=== PATIENT | female | born 2000 | race Caucasian/White ===

== ENCOUNTER 2020-03-18 22:33 | Observation (INO) | payer OTHER, MEDICAID, SELFPAY ==
[2020-03-18 22:37] VITALS: BP 138/89; PULSE 109; RESP 18; TEMP 37.3; O2SAT 100; BMI 25.1
[2020-03-18 23:05] LABS: Add Manual Diff / Slide Review NO; Basophils Absolute Auto 100 /uL (0-100); Basophils Percent Auto 0.4 % (0-2); Eosinophils Absolute Auto 0 /uL (0-450); Hematocrit 45.2 % (36-46); Hemoglobin 15.2 g/dL (12.0-16.0); Lymphocytes Absolute Auto 1400 /uL (1100-4500); Lymphocytes Percent Auto 10.1 % (25-40); Mean Corpuscular HGB Conc 33.6 % (30-36); Mean Corpuscular Hemoglobin 28.5 PG (26-34); Mean Corpuscular Volume 84.8 fL (80-100); Monocytes Absolute Auto 800 /uL (0-900); Monocytes Percent Auto 5.7 % (3-14); Neutrophils Absolute Auto 12000 /uL (1500-7000); Neutrophils Percent Auto 83.8 % (50-75); Platelet Count 196 X10^3/uL (150-400); Red Blood Cell Count 5.33 X10^6/uL (4.0-5.2); Red Cell Distribution Width 12.4 % (11.6-14.8); White Blood Cell Count 14.3 X10^3/uL (4.5-11.0)
--- NOTE | 2020-03-18 23:12 | ED_ITS ---
HPI - Abdominal Pain General Chief Complaint: Abdominal Pain Stated Complaint: FEVER RIGHT SIDE PAIN Time Seen by Provider: 03/18/20 22:35 Source: patient and family Mode of arrival: Ambulatory Limitations: no limitations History of Present Illness HPI narrative: 19F nonsmoker without significant medical history presents with her mother and the request of her primary care provider for evaluation of possible appendicitis. She went to bed in her normal state of health and over the course of the day she has developed fever, decreased appetite, nausea, vomiting and shaking chills. She has had generalized abdominal pain which seems to now be more significant in the right lower quadrant. She denies dysuria, christi quency or urgency. She denies any vaginal bleeding or discharge. She states her pain seems to be worse with movement and improves with rest. She denies any runny nose, sneezing, sore throat, cough or shortness of breath. She denies any exposure to persons known to be positive or under suspicion for COVID-19. MD complaint: abdominal pain Onset (ago): hour(s) Pain Consistency: constant Location: RLQ Severity: moderate Quality: aching Relieving factors: rest Exacerbating factors: movement Associated symptoms: nausea, vomiting, fever and chills Related Data Patient : No Allergies Allergy/AdvReac Type Severity Reaction Status Date / Time No Known Drug Allergies Allergy Verified 03/18/20 22:59 Review of Systems Constitutional Constitutional: Reports chills, Denies fatigue, Reports fever(s), Denies f requent falls, Denies lethargy and Denies weakness Eyes Eyes: Denies change in vision, Denies eye discharge, Denies irritation and Denies loss of vision ENT Ears, Nose, Mouth, and Throat: Denies change in voice, Denies dizziness, Denies neck pain, Denies sore throat and Denies throat swelling Cardiovascular Cardiovascular: Denies chest pain, Denies irregular heart rhythm, Denies lightheadedness, Denies palpitations, Denies dyspnea, Denies dyspnea on exertion and Denies orthopnea Respiratory Respiratory: Denies cough, Denies dyspnea, Denies dyspnea on exertion and Denies wheezing Gastrointestinal Gastrointestinal: Reports abdominal pain, Denies change in bowel habits, Denies diarrhea, Reports nausea and Reports vomiting Musculoskeletal Musculoskeletal: Denies neck pain and Denies numbness Integumentary/Breasts Skin/Breast: Denies pruritus, Denies erythema, Denies rash and Denies wounds Neurologic Neurologic: Denies behavioral changes, Denies confusion, Denies dizziness, Denies frequent falls, Denies loss of vision, Denies numbness and Denies weakness Psychiatric Psychiatric: Denies anxiety, Denies behavioral changes, Denies confusion, Denies depression, Denies homicidal ideation and Denies suicidal ideation Endocrine Endocrine: Denies fatigue, Denies flushing and Denies palpitations Hematologic/Lymphatic Hematologic/Lymphatic: Denies easy bruising Allergic/Immunologic Allergic/Immunologic: Denies urticaria, Denies throat swelling and Denies wheezing Patient History Medical History History of pernicious anemia Surgical History Hx of tonsillectomy Family History Mother Pernicious anemia Sister Pernicious anemia Father Depression Schizoaffective disorder Bipolar 1 disorder Social History household members: family Smoking Status: Never smoker Smoking Status: Never smoker alcohol intake frequency: other Substance Use Type: does not use Exam Narrative Exam Narrative: GENERAL: [19] year old patient appears stated age. Well-nourish ed, well-developed patient, in mild distress. Appears unwell HEAD: Atraumatic. Normocephalic. EYES: Pupils equal round and reactive. Extraocular motions intact. No scleral icterus. No injection or drainage. ENT: Nose without bleeding, purulent drainage. Throat without erythema, tonsillar hypertrophy or exudate. Airway patent. NECK: Trachea midline. Non tender CARDIOVASCULAR: Regular rate and rhythm without murmurs, gallops, or rubs. RESPIRATORY: Clear to auscultation. Breath sounds equal bilaterally. No wheezes, rales, or rhonchi. GASTROINTESTINAL: Abdomen soft, non-tender, nondistended. No rebound. No RLQ tenderness. No heel tap, no Rovsing's. No obturator or psoas sign EXTREMITIES: No edema or joint tenderness. BACK: Nontender without deformity or crepitance. No flank tenderness. NEURO: AOx3. SKIN: No rash or erythema of visible areas Initial Vital Signs Initial Vital Signs: Vital Signs Temperature 99.2 F 12/08/20 22:37 Pulse Rate 109 H 03/18/20 22:37 Respiratory Rate 18 03/18/20 22:37 Blood Pressure 138/89 03/18/20 22:37 Pulse Oximetry 100 03/18/20 22:37 Course Orders Ordered: ED Orders 03/18/20 22:40 COVID19 Stat 03/18/20 22:50 Complete Blood Count AUTO DIFF Stat Comprehensive Metabolic Panel Stat 03/18/20 23:15 UA Complete [Urinalysis and Microscopic] Stat 03/18/20 23:42 CT abdomen pelvis w con Stat 03/19/20 01:37 Lactate (Lactic Acid) Stat Procalcitonin Stat 03/19/20 01:50 Blood Culture Stat Acetaminophen (Acetaminophen 325 Mg Tablet) 650 mg PO Q6HR PRN PRN Reason: Fever/Mild Pain (1-3) Sodium Chloride (Normal Saline 0.45%) 1,000 mls @ 100 mls/hr IV CONT MARIPOSA Last Admin: 03/19/20 03:11 Dose: 100 mls/hr Documented by: TATY Levofloxacin (Levaquin) 750 mg in 150 mls @ 100 mls/hr IV Q24H MARIPOSA Ketorolac Tromethamine (Ketorolac 30 Mg/Ml Vial) 15 mg IV Q6HR PRN PRN Reason: Pain, Severe (7-10) Stop: 03/24/20 02:22 Discontinued Medications Sodium Chloride (Normal Saline 0.9%) 1,000 mls @ 1,000 mls/hr IV BOLUS ONE Stop: 03/18/20 23:38 Last Infusion: 03/19/20 02:20 Dose: 0 mls/hr Documented by: Admin: 03/18/20 23:32 Dose: 1,000 mls/hr Documented by: SUN Levofloxacin (Levaquin) 500 mg in 100 mls @ 100 mls/hr IV NOW ONE Stop: 03/19/20 02:23 Last Infusion: 03/19/20 02:21 Dose: 0 mls/hr Documented by: Admin: 03/19/20 01:51 Dose: 100 mls/hr Documented by: SUN Ketorolac Tromethamine (Ketorolac 60 Mg/2 Ml Vial) 15 mg IV NOW ONE Stop: 03/19/20 00:34 Last Admin: 03/19/20 00:37 Dose: 15 mg Documented by: AUPDIKE Consultations Consultation #1: discussion with Urology (Ivy) to discusss ill appearing patient with imaging, labs suggesting pyelonephritis despite 3 negative urine tests. Given focal appearance of pyelonephritis there is concern for possible hematologic spread. Recommends IV ABX, fluids Vital Signs Vital signs: Vital Signs - 8 hr 03/18/20 22:37 03/18/20 23:37 03/19/20 00:00 Temperature 99.2 F Pulse Rate 109 H 115 H 105 H Respiratory Rate 18 Blood Pressure 138/89 119/79 Pulse Oximetry 100 100 100 03/19/20 00:30 03/19/20 00:39 03/19/20 01:00 Temperature 101.4 F H 99.6 F Pulse Rate 112 H 108 H 109 H Respiratory Rate Blood Pressure 127/85 125/78 Pulse Oximetry 100 100 99 03/19/20 01:13 03/19/20 01:30 Temperature 99.6 F Pulse Rate 115 H Respiratory Rate Blood Pressure 130/79 Pulse Oximetry 99 MDM - Abdominal Pain Lab Data Result diagrams: 03/18/20 22:50 03/18/20 22:50 Labs: Lab Results 03/18/20 03/18/20 03/18/20 Range/Units 22:40 22:50 22:50 WBC 14.3 H (4.5-11.0) X10^3/uL RBC 5.33 H (4.0-5.2) X10^6/uL Hgb 15.2 (12.0-16.0) g/dL Hct 45.2 (36-46) % MCV 84.8 (80-100) fL MCH 28.5 (26-34) PG MCHC 33.6 (30-36) % RDW 12.4 (11.6-14.8) % Plt Count 196 (150-400) X10^3/uL Neut % (Auto) 83.8 H (50-75) % Lymph % (Auto) 10.1 L (25-40) % Phillips % (Auto) 5.7 (3-14) % Eos % (Auto) 0.0 L (2-4) % Baso % (Auto) 0.4 (0-2) % Neut # (Auto) 98131 H (6930-8012) /uL Lymph # (Auto) 1400 (8738-8097) /uL Phillips # (Auto) 800 (0-900) /uL Eos # (Auto) 0 (0-450) /uL Baso # (Auto) 100 (0-100) /uL Sodium 138 (137-145) mmol/L Potassium 4.0 (3.4-5.1) mmol/L Chloride 103 (98-107) mmol/L Carbon Dioxide 27 (22-32) mmol/L BUN 8 (7-17) mg/dL Creatinine 0.77 (0.52-1.04) mg/dL Estimated GFR > 60.0 (>60) mL/min BUN/Creatinine Ratio 10.4 (6-22) Glucose 107 H (70-100) mg/dL Lactate (0.7-2.1) mmol/L Calcium 9.9 (8.4-10.2) mg/dL Total Bilirubin 1.0 (0.2-1.3) mg/dL AST 22 (14-36) IU/L ALT 15 (<35) IU/L Alkaline Phosphatase 68 (38-126) U/L Total Protein 8.8 H (6.3-8.2) g/dL Albumin 4.8 (3.5-5.0) g/dL Globulin 4.0 (1.7-4.1) g/dL Albumin/Globulin Ratio 1.2 (1.0-2.8) Procalcitonin (<0.5) ng/mL Urine Color Urine Appearance Urine pH (4.5-8.0) Ur Specific [place] (1.000-1.035) Urine Protein (Negative) Urine Glucose (UA) (Negative) g/dL Urine Ketones (NEGATIVE) Urine Occult Blood (Negative) Urine Nitrate (Negative) Urine Bilirubin (NEGATIVE) Urine Urobilinogen (0.2) E.U./dL Ur Leukocyte Esterase (NEGATIVE) Urine RBC (0-5/HPF) Urine WBC (0-5/HPF) Ur Squamous Epith Cells (0-5/HPF) Urine Bacteria (None) Ur Culture Indicated? Urine Test (Negative) COVID-19 PCR Negative (Negative) 03/18/20 03/18/20 03/18/20 Range/Units 22:50 22:50 23:15 WBC (4.5-11.0) X10^3/uL RBC (4.0-5.2) X10^6/uL Hgb (12.0-16.0) g/dL Hct (36-46) % MCV (80-100) fL MCH (26-34) PG MCHC (30-36) % RDW (11.6-14.8) % Plt Count (150-400) X10^3/uL Neut % (Auto) (50-75) % Lymph % (Auto) (25-40) % Phillips % (Auto) (3-14) % Eos % (Auto) (2-4) % Baso % (Auto) (0-2) % Neut # (Auto) (5673-6921) /uL Lymph # (Auto) (8047-3602) /uL Phillips # (Auto) (0-900) /uL Eos # (Auto) (0-450) /uL Baso # (Auto) (0-100) /uL Sodium (137-145) mmol/L Potassium (3.4-5.1) mmol/L Chloride (98-107) mmol/L Carbon Dioxide (22-32) mmol/L BUN (7-17) mg/dL Creatinine (0.52-1.04) mg/dL Estimated GFR (>60) mL/min BUN/Creatinine Ratio (6-22) Glucose (70-100) mg/dL Lactate 1.0 (0.7-2.1) mmol/L Calcium (8.4-10.2) mg/dL Total Bilirubin (0.2-1.3) mg/dL AST (14-36) IU/L ALT (<35) IU/L Alkaline Phosphatase (38-126) U/L Total Protein (6.3-8.2) g/dL Albumin (3.5-5.0) g/dL Globulin (1.7-4.1) g/dL Albumin/Globulin Ratio (1.0-2.8) Procalcitonin 0.08 (<0.5) ng/mL Urine Color Yellow Urine Appearance Clear Urine pH 7.5 (4.5-8.0) Ur Specific [place] 1.010 (1.000-1.035) Urine Protein Negative (Negative) Urine Glucose (UA) Negative (Negative) g/dL Urine Ketones Trace H (NEGATIVE) Urine Occult Blood 2+ H (Negative) Urine Nitrate Negative (Negative) Urine Bilirubin Negative (NEGATIVE) Urine Urobilinogen 0.2 (0.2) E.U./dL Ur Leukocyte Esterase Negative (NEGATIVE) Urine RBC 1-5/hpf (0-5/HPF) Urine WBC 0-1/hpf (0-5/HPF) Ur Squamous Epith Cells 1-5 /hpf (0-5/HPF) Urine Bacteria None seen (None) Ur Culture Indicated? Cult not indicated Urine Test (Negative) COVID-19 PCR (Negative) 03/18/20 Range/Units 23:15 WBC (4.5-11.0) X10^3/uL RBC (4.0-5.2) X10^6/uL Hgb (12.0-16.0) g/dL Hct (36-46) % MCV (80-100) fL MCH (26-34) PG MCHC (30-36) % RDW (11.6-14.8) % Plt Count (150-400) X10^3/uL Neut % (Auto) (50-75) % Lymph % (Auto) (25-40) % Phillips % (Auto) (3-14) % Eos % (Auto) (2-4) % Baso % (Auto) (0-2) % Neut # (Auto) (5310-0484) /uL Lymph # (Auto) (3451-2747) /uL Phillips # (Auto) (0-900) /uL Eos # (Auto) (0-450) /uL Baso # (Auto) (0-100) /uL Sodium (137-145) mmol/L Potassium (3.4-5.1) mmol/L Chloride (98-107) mmol/L Carbon Dioxide (22-32) mmol/L BUN (7-17) mg/dL Creatinine (0.52-1.04) mg/dL Estimated GFR (>60) mL/min BUN/Creatinine Ratio (6-22) Glucose (70-100) mg/dL Lactate (0.7-2.1) mmol/L Calcium (8.4-10.2) mg/dL Total Bilirubin (0.2-1.3) mg/dL AST (14-36) IU/L ALT (<35) IU/L Alkaline Phosphatase (38-126) U/L Total Protein (6.3-8.2) g/dL Albumin (3.5-5.0) g/dL Globulin (1.7-4.1) g/dL Albumin/Globulin Ratio (1.0-2.8) Procalcitonin (<0.5) ng/mL Urine Color Urine Appearance Urine pH (4.5-8.0) Ur Specific [place] (1.000-1.035) Urine Protein (Negative) Urine Glucose (UA) (Negative) g/dL Urine Ketones (NEGATIVE) Urine Occult Blood (Negative) Urine Nitrate (Negative) Urine Bilirubin (NEGATIVE) Urine Urobilinogen (0.2) E.U./dL Ur Leukocyte Esterase (NEGATIVE) Urine RBC (0-5/HPF) Urine WBC (0-5/HPF) Ur Squamous Epith Cells (0-5/HPF) Urine Bacteria (None) Ur Culture Indicated? Urine Test Negative (Negative) COVID-19 PCR (Negative) Point of care testing: Point of Care Testing Test Results Negative Urine Dip Bedside Urine Glucose Negative Bedside Urine Bilirubin - Negative Bedside Urine Ketone - Negative Urine Specific [place] 1.010 Bedside Urine Occult Blood ++ Bedside Urine pH 7.5 Bedside Urine Protein - Negative Bedside Urine Urobilinogen - Negative Bedside Urine Nitrite - Negative Bedside Urine Leukocytes - Negative Esterase Imaging Data CT scan - abdomen/pelvis: Radiologist's Impression: Findings suggesting R sided pyelonephritis. Thick walled urinary bladder suggesting cystitis. Appendix is visualized and there is no evidence of acute appendicitis. Discharge Plan Departure Admit Date/Time: 03/19/20 01:43 Admit Provider: Sonya Alexandra
[2020-03-18 23:19] LABS: Alanine Aminotransferase 15 IU/L (<35); Albumin 4.8 g/dL (3.5-5.0); Albumin Globulin Ratio 1.2 (1.0-2.8); Alkaline Phosphatase 68 U/L (38-126); Aspartate Aminotransferase 22 IU/L (14-36); BUN Creatinine Ratio 10.4 (6-22); Blood Urea Nitrogen 8 mg/dL (7-17); Calcium 9.9 mg/dL (8.4-10.2); Carbon Dioxide 27 mmol/L (22-32); Chloride 103 mmol/L (98-107); Estimated Glomerular Filt Rate > 60.0 mL/min (>60); Glucose 107 mg/dL (70-100); HEMOLYSIS < 15 (0-50); Sodium 138 mmol/L (137-145); Total Protein 8.8 g/dL (6.3-8.2)
[2020-03-18 23:28] LABS: COVID19 -Nasal RAPID Negative (Negative)
[2020-03-18] MEDS: SODIUM CHLORIDE 0.9% 1,000 ML 1000 ML IV (23:32)
[2020-03-18 23:37] VITALS: BP 119/79; PULSE 115; O2SAT 100
[2020-03-18 23:40] LABS: Bacteria Urine None Seen
[2020-03-18 23:42] LABS: Appearance Urine UA CLEAR; Bilirubin Urine UA NEGATIVE (NEGATIVE); Color Urine UA YELLOW; Glucose Urine UA NEGATIVE (Negative); Ketones Urine UA TRACE (NEGATIVE); Leukocyte Esterase Urine UA NEGATIVE (NEGATIVE); Nitrite Urine UA NEGATIVE (Negative); Occult Blood Urine UA 2+ (Negative); Protein Urine UA NEGATIVE (Negative); Urobilinogen Urine UA 0.2 E.U./dL (0.2)
--- NOTE | 2020-03-18 23:42 | DI.CT.S_ITS ---
PROCEDURE: CT ABDOMEN PELVIS W CON INDICATIONS: pain right lower quadrant, fever, chills, nausea, vomiting TECHNIQUE: After the administration of intravenous contrast, 5 mm thick sections acquired from the diaphragm to the symphysis. 5 mm coronal and sagittal reformats were acquired. For radiation dose reduction, the following was used: automated exposure control, adjustment of mA and/or kV according to patient size. COMPARISON: None. FINDINGS: Image quality: Excellent. ABDOMEN: Lung bases: Lung bases are clear. Heart size is normal. Solid organs: Liver is normal in size and enhancement. Gallbladder is normal. Biliary system is non dilated. Pancreas enhances normally. Spleen is normal in size and enhancement. No adrenal nodules. Right kidney demonstrates focal, heterogeneous post-contrast enhancement most concerning for pyelonephritis. Left kidney demonstrates normal postcontrast enhancement. Peritoneum and bowel: Bowel loops demonstrate normal wall thickness and caliber. No free fluid or air. The appendix is normal. Nodes and vessels: No retroperitoneal or mesenteric adenopathy by size criteria. Aorta and inferior vena cava are normal in size. Miscellaneous: No ventral hernias. PELVIS: Genitourinary: Urinary bladder wall is diffusely thickened. Miscellaneous: No inguinal hernias or adenopathy. Bones: No suspicious bony lesions. No vertebral body compression fractures. IMPRESSION: 1. No evidence of appendicitis. 2. Probable right-sided pyelonephritis. Recommend correlation with urinalysis data. 3. Diffuse urinary bladder wall thickening concerning for infectious cystitis. Recommend correlation with urinalysis data. Dictated by: Raegan Alvarenga MD, PhD on 03/19/2020 at 8:02 Approved by: Raegan Alvarenga MD, PhD on 03/19/2020 at 8:05
[2020-03-18 23:53] LABS: pH Urine UA 7.5 (4.5-8.0)
[2020-03-18 23:57] LABS: RBC Urine 1-5/HPF (0-5/HPF); WBC Urine 0-1/HPF (0-5/HPF)
[2020-03-18 23:58] LABS: Culture Indicated Urine Cult Not Indicated; Squamous Epithelial Cell Urine 1-5 /HPF (0-5/HPF)
[2020-03-19] VITALS (24 sets, daily range): BP systolic 114–133; BP diastolic 64–91; PULSE 86–115; RESP 15–20; TEMP 36.9–38.7; O2SAT 97–100; BMI 25.1
[2020-03-19] MEDS: KETOROLAC 60 MG/2 ML VIAL 15 MG IV (00:37)
--- NOTE | 2020-03-19 00:41 | PC.NURSE ---
After ativan, patient is now able to tell me that the year is 2019 and the month is March-- the twitching has stopped. He is A&Ox3 and states that he was aware that he was confused earlier but that he couldn't make sense of events that were happening and what people were asking him.
[2020-03-19] MEDS: levoFLOXacin 500 MG/100 ML PIGGYBACK 100 MG IV (01:51)
[2020-03-19 02:07] LABS: Procalcitonin 0.08 ng/mL (<0.5)
--- NOTE | 2020-03-19 02:32 | PM.HP.1 ---
History of Present Illness History of Present Illness Date Patient Seen: 03/19/20 Time Patient Seen: 02:33 Chief complaint: FEVER RIGHT SIDE PAIN Narrative: Mary Bruce is a 19 y.o. female who lives on [facility], currently doing on-line courses through [employer] presented to the ED with a several day history of fevers, shakes, abdominal pain, back and leg aches, and nausea. She was initially suspected of having an acute appendicitis in the ED, however per the ED provider, the only thing that was noted was focal stranding in the right kidney thought to be a descending pylonephritis. She was asked for an observation stay due to her initial presenting complaints of fever and rigors and a desire not to have her return in the case her symptoms deteriorated while out on [facility]. She has recently stopped attending classes at [employer] in [place]. During that time she was tested almost every other week for COVID 19 and those tests were all negative. Patient states that she thought she had a urinary tract infection a few months ago and purchase Monistat for this [id number] to treat it. Patient's T-max was 101.4? and is currently 99.6, blood pressure 124/79, heart rate 112, respiratory rate 18, oxygen saturation is 99% on room air, and she weighs 77.1 kg with a BMI of 25. She has an elevated WBC of 14.3, RBC 5.33, hemoglobin 15.2, hematocrit 45.2, platelet count of 196, she has the left shift with a neutrophil count of 12,000, chemistries within normal limits her glucose was mildly elevated at 107, lactate was normal at 1.0, she had trace urine ketones, the remainder of her UA was negative for bacteria, and her COVID-19 PCR was negative. Patient History Medical History (Updated 03/19/20 @ 02:48 by MAGDI Coon) History of pernicious anemia Surgical History Hx of tonsillectomy Family & Social History Family History (Updated 03/19/20 @ 02:42 by MAGDI Coon) Mother Pernicious anemia Sister Pernicious anemia Father Depression Schizoaffective disorder Bipolar 1 disorder Safety & Behavioral: Feels Safe in Current Yes Environment Tobacco & Substance use: Smoking Status Never smoker alcohol intake frequency other Substance Use Type does not use Meds Home Medications and Allergies Allergies Allergy/AdvReac Type Severity Reaction Status Date / Time No Known Drug Allergies Allergy Verified 03/18/20 22:59 Review of Systems Review of Systems ROS: Yes All systems reviewed with the patient and are negative except as otherwise documented Exam Vital Signs (past 8 hours): - 03/18/20 22:37 03/18/20 23:37 03/19/20 00:00 Temperature 99.2 F Pulse Rate 109 H 115 H 105 H Respiratory Rate 18 Blood Pressure 138/89 119/79 Pulse Oximetry 100 100 100 03/19/20 00:30 03/19/20 00:39 03/19/20 01:00 Temperature 101.4 F H 99.6 F Pulse Rate 112 H 108 H 109 H Respiratory Rate Blood Pressure 127/85 125/78 Pulse Oximetry 100 100 99 03/19/20 01:13 03/19/20 01:30 03/19/20 02:00 Temperature 99.6 F Pulse Rate 115 H 112 H Respiratory Rate Blood Pressure 130/79 124/79 Pulse Oximetry 99 99 Oxygen Delivery Method Room Air Narrative Exam Narrative: Gen: Alert, oriented, well-developed 19 y.o. female, NAD HEENT: normocephalic, atraumatic, conjunctiva clear, sclera non-icteric, oral mucosa pink and moist Neck: supple, full ROM, no JVD, trachea is midline Resp: Lungs CTA, non-labored breathing CV: Tachy but regular, no murmur or rubs Abd: soft, non-tender, normoactive BTs Skin: no lesions or rashes, dry and intact Neuro: Alert and oriented X 4 w/no focal deficits. Speech clear and coherent. Extremities: moves all 4 extremities, is ambulatory, negative Blanca?s sign Psyche: normal mood and affect. Objective Labs Result Diagrams: 03/18/20 22:50 03/18/20 22:50 Labs: Laboratory Results - last 24 hr 03/18/20 03/18/20 03/18/20 22:40 22:50 22:50 WBC 14.3 H RBC 5.33 H Hgb 15.2 Hct 45.2 MCV 84.8 MCH 28.5 MCHC 33.6 RDW 12.4 Plt Count 196 Neut % (Auto) 83.8 H Lymph % (Auto) 10.1 L Jerome % (Auto) 5.7 Eos % (Auto) 0.0 L Baso % (Auto) 0.4 Neut # (Auto) 94671 H Lymph # (Auto) 1400 Jerome # (Auto) 800 Eos # (Auto) 0 Baso # (Auto) 100 Sodium 138 Potassium 4.0 Chloride 103 Carbon Dioxide 27 BUN 8 Creatinine 0.77 Estimated GFR > 60.0 BUN/Creatinine Ratio 10.4 Glucose 107 H Lactate Calcium 9.9 Total Bilirubin 1.0 AST 22 ALT 15 Alkaline Phosphatase 68 Total Protein 8.8 H Albumin 4.8 Globulin 4.0 Albumin/Globulin Ratio 1.2 Procalcitonin Urine Color Urine Appearance Urine pH Ur Specific [place] Urine Protein Urine Glucose (UA) Urine Ketones Urine Occult Blood Urine Nitrate Urine Bilirubin Urine Urobilinogen Ur Leukocyte Esterase Urine RBC Urine WBC Ur Squamous Epith Cells Urine Bacteria Ur Culture Indicated? COVID-19 PCR Negative 03/18/20 03/18/20 03/18/20 22:50 22:50 23:15 WBC RBC Hgb Hct MCV MCH MCHC RDW Plt Count Neut % (Auto) Lymph % (Auto) [place] % (Auto) Eos % (Auto) Baso % (Auto) Neut # (Auto) Lymph # (Auto) [place] # (Auto) Eos # (Auto) Baso # (Auto) Sodium Potassium Chloride Carbon Dioxide BUN Creatinine Estimated GFR BUN/Creatinine Ratio Glucose Lactate 1.0 Calcium Total Bilirubin AST ALT Alkaline Phosphatase Total Protein Albumin Globulin Albumin/Globulin Ratio Procalcitonin 0.08 Urine Color Yellow Urine Appearance Clear Urine pH 7.5 Ur Specific [place] 1.010 Urine Protein Negative Urine Glucose (UA) Negative Urine Ketones Trace H Urine Occult Blood 2+ H Urine Nitrate Negative Urine Bilirubin Negative Urine Urobilinogen 0.2 Ur Leukocyte Esterase Negative Urine RBC 1-5/hpf Urine WBC 0-1/hpf Ur Squamous Epith Cells 1-5 /hpf Urine Bacteria None seen Ur Culture Indicated? Cult not indicated COVID-19 PCR Assessment & Plan Assessment & Plan narrative: Mary Bruce will be observed overnight and given IV antibiotics for a presumed descending pyelonephritis. Fever in the setting of suspected descending pyelonephritis, acute, present on admission -fever and pain control with IV ketorolac and oral Tylenol -she will receive a dose of IV Levaquin 750 mg x 1 in the morning -it is hoped with clinical improvement that she will be able to be discharged tomorrow VTE prophylaxis: Wells risk score: 0 Bilateral SCDs Consults: none Patient is observation status as her stay is not likely to exceed 2 midnights. FEN: IV NS at 100 ml/hour, regular diet, CBC, BMP in the am. Dispo: probable discharge to home Code Status: Full code as discussed with patient COVID-19 COVID-19 status: Negative Result date/Date tested (Pos, Neg/Pending): 03/19/20
[2020-03-19] MEDS: SODIUM CHLORIDE 0.45% 1,000 ML 100 ML IV ×3 (03:11→23:07)
[2020-03-19 03:22] LABS: Pregnancy Test Urine Negative (Negative)
--- NOTE | 2020-03-19 04:02 | PC.NURSE ---
pt was admitted to AC room 204 from ED, pt came up in a wheelchair pt can ambulate independently, complains of generalized pain and nausea, pt denies dizziness at this time. Mother at bedside and serves as a support person for pt. pt states she can tolerate the pain at this time and declined medications for pain. Call light explained bed in lowest position, will continue to monitor.
[2020-03-19] MEDS: ACETAMINOPHEN 325 MG TABLET 650 MG PO ×3 (05:03→21:18)
[2020-03-19] MEDS: METOCLOPRAMIDE 10 MG/2 ML INJ 5 MG IV ×3 (05:03→17:53)
[2020-03-19 06:02] LABS: Add Manual Diff / Slide Review NO; Basophils Absolute Auto 0 /uL (0-100); Basophils Percent Auto 0.3 % (0-2); Eosinophils Absolute Auto 0 /uL (0-450); Hematocrit 38.3 % (36-46); Hemoglobin 13.1 g/dL (12.0-16.0); Lymphocytes Absolute Auto 1400 /uL (1100-4500); Lymphocytes Percent Auto 10.2 % (25-40); Mean Corpuscular HGB Conc 34.2 % (30-36); Mean Corpuscular Hemoglobin 28.7 PG (26-34); Mean Corpuscular Volume 83.7 fL (80-100); Monocytes Absolute Auto 1100 /uL (0-900); Monocytes Percent Auto 8.6 % (3-14); Neutrophils Absolute Auto 10800 /uL (1500-7000); Neutrophils Percent Auto 80.9 % (50-75); Platelet Count 157 X10^3/uL (150-400); Red Blood Cell Count 4.57 X10^6/uL (4.0-5.2); Red Cell Distribution Width 12.4 % (11.6-14.8); White Blood Cell Count 13.4 X10^3/uL (4.5-11.0)
[2020-03-19] MEDS: KETOROLAC 30 MG/ML VIAL 15 MG IV ×3 (06:12→17:54)
[2020-03-19 06:13] LABS: BUN Creatinine Ratio 12.9 (6-22); Blood Urea Nitrogen 8 mg/dL (7-17); Carbon Dioxide 24 mmol/L (22-32); Chloride 104 mmol/L (98-107); Estimated Glomerular Filt Rate > 60.0 mL/min (>60); Glucose 109 mg/dL (70-100); HEMOLYSIS < 15 (0-50); Potassium 3.7 mmol/L (3.4-5.1); Sodium 133 mmol/L (137-145)
[2020-03-19] MEDS: CEFTRIAXONE 1 GM/50 ML FROZ.PIGGY IV (10:24)
--- NOTE | 2020-03-19 10:48 | CM.IDA ---
Initial DCP Assessment Note Patient is a 19 yo female, resident of [facility]. Patient presents w/fever and right sided pain, suspected pyelonephritis PCP: No PCP listed Payer: Marc/HUSSAIN Met w/patient and her mom at bedside, introduced SW role. Patient and mom are in good spirits, hope to return home at least by tomorrow. 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 Patient has two supportive sisters living in the [facility]. P: DC home expected when medically cleared. Contact info left in case any DC needs or concerns arise LOREN Fuller Discharge Planning/Care Management CM Discharge Assessment Start: 03/19/20 10:44 Freq: Status: Active Protocol: Document 03/19/20 10:45 JAIRO (Rec: 03/19/20 10:48 JAIRO [id number]) Discharge Planning Assessment Assigned Parts Salesman LOREN Sandoval DPOA/Assigned Designee Name gregory Massey Contact Information Need contact info Advance Directives? No History Provided By Patient Prior Living Arrangements House Household Members family Type of transporation used prior to Drives own vehicle admit Independent with ADL's Yes Is patient alert and oriented? Yes Barriers to Discharge No Discharge Plan Home Transportation Arrangement Family Referrals Initiated None needed
--- NOTE | 2020-03-19 14:01 | PC.NURSE ---
Patient VSS, has temp 100.2 this afternoon, after medications temp was 99.3. Toradol and Tylenol given Q6. Reglan give for nausea, bowel tones active in all quadrants. LS clear. Patient is tired, and doesn't have very much appetite. Patient did get up for a shower before lunch. IV Ceftriaxone given today. 1/2NS running at 100ml/hr. Patient asked for a fan for her face to cool it off.
[2020-03-20 00:09] VITALS: BP 121/80; PULSE 109; RESP 16; TEMP 37.2; O2SAT 99
[2020-03-20 00:55] VITALS: TEMP 37.3
--- NOTE | 2020-03-20 00:59 | PC.NURSE ---
Addendum entered by Maricarmen Klein R.N. 03/20/20 04:48: Having 4/10 headache but declines anything stronger than Tylenol so medicated with Tylenol. Also medicated with Reglan for complaint of nausea but without emesis. Original Note: Patient is alert and oriented. Breath sounds CTA with RA sat of 99%. HRR but tachy at 109 bpm. Denies nausea. BT present and is passing flatus + had very small formed/brown stool. Denies dysuria, frequency or urgency with urination. Low grade temp of 99.1. Has 1-2/10 tenderness in RLQ of abdomen but declines need for pain medication. Independent with mobility. Refusing SCD's so reminded to ankle wave. Fall risk score is low. Mom rooming in.
[2020-03-20 04:16] VITALS: BP 123/74; PULSE 101; RESP 16; TEMP 37.9; O2SAT 100
[2020-03-20] MEDS: METOCLOPRAMIDE 10 MG/2 ML INJ 5 MG IV (04:43)
[2020-03-20 04:46] VITALS: TEMP 37.9
[2020-03-20] MEDS: ACETAMINOPHEN 325 MG TABLET 650 MG PO (04:46)
[2020-03-20 07:38] LABS: Add Manual Diff / Slide Review NO; Basophils Absolute Auto 0 /uL (0-100); Basophils Percent Auto 0.3 % (0-2); Eosinophils Absolute Auto 0 /uL (0-450); Eosinophils Percent Auto 0.1 % (2-4); Hematocrit 36.7 % (36-46); Hemoglobin 12.4 g/dL (12.0-16.0); Lymphocytes Absolute Auto 1400 /uL (1100-4500); Lymphocytes Percent Auto 11.3 % (25-40); Mean Corpuscular HGB Conc 33.9 % (30-36); Mean Corpuscular Hemoglobin 28.5 PG (26-34); Monocytes Absolute Auto 1100 /uL (0-900); Monocytes Percent Auto 8.4 % (3-14); Neutrophils Absolute Auto 10000 /uL (1500-7000); Neutrophils Percent Auto 79.9 % (50-75); Platelet Count 159 X10^3/uL (150-400); Red Blood Cell Count 4.37 X10^6/uL (4.0-5.2); Red Cell Distribution Width 12.4 % (11.6-14.8); White Blood Cell Count 12.5 X10^3/uL (4.5-11.0)
[2020-03-20 07:48] LABS: Alanine Aminotransferase 9 IU/L (<35); Albumin 3.6 g/dL (3.5-5.0); Albumin Globulin Ratio 1.2 (1.0-2.8); Alkaline Phosphatase 49 U/L (38-126); Aspartate Aminotransferase 15 IU/L (14-36); BUN Creatinine Ratio 9.8 (6-22); Bilirubin Total 0.6 mg/dL (0.2-1.3); Blood Urea Nitrogen 5 mg/dL (7-17); Calcium 8.7 mg/dL (8.4-10.2); Carbon Dioxide 24 mmol/L (22-32); Chloride 107 mmol/L (98-107); Estimated Glomerular Filt Rate > 60.0 mL/min (>60); Globulin 3.1 g/dL (1.7-4.1); Glucose 108 mg/dL (70-100); HEMOLYSIS < 15 (0-50); Magnesium 1.9 mg/dL (1.6-2.3); Potassium 3.7 mmol/L (3.4-5.1); Sodium 135 mmol/L (137-145); Total Protein 6.7 g/dL (6.3-8.2)
[2020-03-20 08:00] VITALS: BP 120/62; PULSE 75; RESP 15; TEMP 37.1; O2SAT 99
[2020-03-20 08:03] LABS: Procalcitonin < 0.05 ng/mL (<0.5)
[2020-03-20] MEDS: LEVONORGESTREL ETHINYL ESTRAD 1 EACH PO (08:55)
[2020-03-20] MEDS: CEFTRIAXONE 1 GM/50 ML FROZ.PIGGY IV (08:56)
[2020-03-20 09:12] VITALS: O2SAT 98
--- NOTE | 2020-03-20 10:04 | P.DS_ITS ---
History of Present Illness History of Present Illness Date Patient Seen: 03/19/20 Chief complaint: FEVER RIGHT SIDE PAIN Narrative: Written by Sonya FAIRBANKS: Mary Bruce is a 19 y.o. female who lives on [facility], currently doing on-line courses through [employer] presented to the ED with a several day history of fevers, shakes, abdominal pain, back and leg aches, and nausea. She was initially suspected of having an acute appendicitis in the ED, however per the ED provider, the only thing that was noted was focal stranding in the right kidney thought to be a descending pylonephritis. She was asked for an observation stay due to her initial presenting complaints of fever and rigors and a desire not to have her return in the case her symptoms deteriorated while out on [facility]. She has recently stopped attending classes at [employer] in [place]. During that time she was tested almost every other week for COVID 19 and those tests were all negative. Patient states that she thought she had a urinary tract infection a few months ago and purchase Monistat for this [id number] to treat it. Patient's T-max was 101.4? and is currently 99.6, blood pressure 124/79, heart rate 112, respiratory rate 18, oxygen saturation is 99% on room air, and she weighs 77.1 kg with a BMI of 25. She has an elevated WBC of 14.3, RBC 5.33, hemoglobin 15.2, hematocrit 45.2, platelet count of 196, she has the left shift with a neutrophil count of 12,000, chemistries within normal limits her glucose was mildly elevated at 107, lactate was normal at 1.0, she had trace urine ketones, the remainder of her UA was negative for bacteria, and her COVID-19 PCR was negative. Discharge Providers Provider Date of admission: 03/19/20 01:43 Discharge Date: 03/20/20 Discharge provider: Atiya Elias DO Summary Hospital Course Discharge Diagnosis: 1. Acute urinary tract infection and probable right-sided pyelonephritis, present on admission. Resolving. Hospital Course: Mary Bruce is 19-year-old female with no significant past medical history presented to the ED with fever, chills, rigors, decreased appetite nausea and vomiting. 1. Acute urinary tract infection and probable right-sided pyelonephritis, present on admission. Resolving. -Patient presented with fever, chills, rigors, decreased appetite, nausea, and vomiting. Of note, week prior to admission she had symptoms which resolved reportedly without antibacterial treatment. -COVID-19 negative. -Urinalysis appeared grossly normal and urine culture x2 had no growth. Blood cultures x2 have no growth to date. Interestingly, patient has UTI and right- sided pyelonephritis by clinical exam and imaging and question whether patient has taken antibacterial treatment prior to arrival although adamantly refuses. -CT abdomen and pelvis with contrast demonstrated probable right-sided pyelonephritis and diffuse urinary bladder wall thickening concerning for infectious cystitis. No evidence of appendicitis. -Received levofloxacin 500 mg IV x1 in ED in ED. Continue levofloxacin 750 mg IV daily which was switched to ceftriaxone 1 g IV daily. Discharged home on cefdinir 300 mg twice daily for 5 additional days to complete 7 day course of antibiotic treatment. Exam Vital Signs (past 8 hours): - 03/20/20 04:16 03/20/20 04:46 03/20/20 08:00 Temperature 100.2 F H 100.2 F H 98.7 F Pulse Rate 101 H 75 Respiratory Rate 16 15 Blood Pressure 123/74 120/62 Pulse Oximetry 100 99 03/20/20 09:12 Temperature Pulse Rate Respiratory Rate Blood Pressure Pulse Oximetry 98 Oxygen Delivery Method Room Air Oxygen Flow Rate 0 Narrative Exam Narrative: General: Young female sitting in bed and in no acute distress, well-developed, well-nourished, appropriately interactive. HEENT: Normocephalic, atraumatic. External ears without defect. Pupils equal, round, and reactive to light. Anicteric sclerae, moist conjunctivae, and no lid lag. Oropharynx free of erythema and cobble stoning with moist mucosa. Neck: Supple with full range of motion. No jugular venous distension. No bruits. No lymphadenopathy or thyromegaly. Cardiovascular: Regular rate and rhythm without murmurs, rubs, or gallops appreciated Pulmonary: Clear to auscultation bilaterally without crackles, wheezes, or rhonchi. Normal respiratory effort with no use of accessory muscles. Abdomen: Soft, bowel sounds present, mild tenderness to palpation in suprapubic area, nondistended. No hepatosplenomegaly or masses appreciated. Extremities: No clubbing, cyanosis, or edema. Skin: Normal temperature, turgor, and texture; no rash, ulcers, or subcutaneous nodules appreciated. Neurological: Cranial nerves grossly intact. Psychiatric: Normal mood and affect. Alert and oriented to person, place, and time. Objective Labs Result Diagrams: 03/20/20 07:26 12 07:26 Labs: Laboratory Results - last 24 hr 03/20/20 03/20/20 03/20/20 07:26 07:26 07:26 WBC 12.5 H RBC 4.37 Hgb 12.4 Hct 36.7 MCV 84.0 MCH 28.5 MCHC 33.9 RDW 12.4 Plt Count 159 Neut % (Auto) 79.9 H Lymph % (Auto) 11.3 L [place] % (Auto) 8.4 Eos % (Auto) 0.1 L Baso % (Auto) 0.3 Neut # (Auto) 83213 H Lymph # (Auto) 1400 [place] # (Auto) 1100 H Eos # (Auto) 0 Baso # (Auto) 0 Sodium 135 L Potassium 3.7 Chloride 107 Carbon Dioxide 24 BUN 5 L Creatinine 0.51 L Estimated GFR > 60.0 BUN/Creatinine Ratio 9.8 Glucose 108 H Calcium 8.7 Magnesium 1.9 Total Bilirubin 0.6 AST 15 ALT 9 Alkaline Phosphatase 49 Total Protein 6.7 Albumin 3.6 Globulin 3.1 Albumin/Globulin Ratio 1.2 Procalcitonin < 0.05 PFSH Medical History History of pernicious anemia Surgical History Hx of tonsillectomy Family History Mother Pernicious anemia Sister Pernicious anemia Father Depression Schizoaffective disorder Bipolar 1 disorder Social History household members: family Smoking Status: Never smoker Discharge Plan Discharge Plan Patient Disposition: Home Provider Discharge Comment: You are being discharged home. You have a urinary tract infection that likely infected your right kidney as well. Interestingly, your blood and urine cultures have no growth. You have been prescribed cefdinir 300 mg twice daily for 5 additional days to complete 7 days total antibiotic treatment (start antibiotic tomorrow). You have also been prescribed ondansetron 4 mg every 8 hours as needed for nausea and vomiting. Please try to stay well hydrated and get plenty of rest. You may have fevers for up to 2 weeks but the frequency and severity should slowly dissipate and resolve completely. You may take Tylenol as directed on bottle for fever and/or pain. Please follow-up with your primary care physician in the next 1-2 weeks regarding your hospitalization. Discharge orders & Medications Prescriptions: New cefdinir 300 mg capsule 300 mg PO BID Qty: 10 RF: 0 ondansetron 4 mg tablet,disintegrating 4 mg PO Q8H PRN (Reason: nausea and vomiting) Qty: 7 RF: 0 Continued levonorgestrel-ethinyl estrad [Stewart 28] 0.15-0.03 mg tablet 1 tab PO DAILY RF: 0 Diet/Activity/Treatments Diet: Diet as Tolerated and Regular Activity: Activity as tolerated Visit Report/Discharge Packet Instructions: DI for Kidney Infection, DI for Urinary Tract Infection (UTI) Discharge Data Attending Provider: Sonya Alexandra
[2020-03-20] MEDS: ONDANSETRON 4 MG/2 ML INJ IV (10:14)
--- NOTE | 2020-03-20 10:26 | PC.NURSE ---
Patient educated about medications, dose and time, activity, diet, kidney infections and UTI's, also the proper use of Monistat. Patient educated about ss of infection, ss of stroke. Patient was told that she needs to find a primary care provider and follow up with her provider in 1-2 weeks. Patient verbalized understanding of all discharge instructions. Patient left facility with paper scripts, and priority ferry boarding. Patient left facility walking to car with mother.
--- NOTE | 2020-03-20 13:12 | CM.DPNOTE ---
DC Note DC order in place now and patient expects to have no needs from this [facility]. P: Home w/family, close outpatient f/u [facility]
== END 2020-03-20 10:26 | disposition home or self-care (01) ==
LOC: ED 23:10 → AC 03-19 01:44
PROVIDERS: Internal Medicine; Admitting Provider Nurse Practitioner Family; Emergency Provider Emergency Medicine; Referring Provider Emergency Medicine; Visit Provider Nurse Practitioner Family
DX: N39.0 Urinary tract infection, site not specified (principal); R10.84 Generalized abdominal pain; R50.9 Fever, unspecified; Z11.59 Encounter for screening for other viral diseases
CPT/HCPCS: 36415; 74177; 80048; 80053; 81001; 81003; 81025; 83605; 83735; 84145; 85025; 87040; 87086; 87635; 96361; 96365; 96366; 96367; 96375; 96376; 99284; G0378; J1885; J1956; J2405; J2765; J7050; Q9967

== ENCOUNTER → 2024-01-18 14:29 | Outpatient (CLI) | payer OTHER, SELFPAY ==
[2022-09-02 13:16] VITALS: BMI 25.1
== END ==
PROVIDERS: PCP Family Medicine; Visit Provider Physician Assistant Medical
DX: R30.0 Dysuria (principal)
CPT/HCPCS: 87077; 87086; 87186

== ENCOUNTER → 2024-04-17 10:39 | Outpatient (CLI) | payer OTHER, SELFPAY ==
[2022-09-02 13:16] VITALS: BMI 25.1
[2024-04-17 20:13] LABS: Add Manual Diff / Slide Review NO; Basophils Absolute Auto 0 /uL (0-100); Basophils Percent Auto 0.4 % (0-2); Eosinophils Absolute Auto 100 /uL (0-450); Eosinophils Percent Auto 0.9 % (2-4); Hematocrit 45.1 % (36-46); Hemoglobin 15.1 g/dL (12.0-16.0); Lymphocytes Absolute Auto 1600 /uL (1100-4500); Lymphocytes Percent Auto 24.3 % (25-40); Mean Corpuscular HGB Conc 33.6 % (30-36); Mean Corpuscular Hemoglobin 29.1 PG (26-34); Mean Corpuscular Volume 86.8 fL (80-100); Monocytes Absolute Auto 400 /uL (0-900); Monocytes Percent Auto 6.1 % (3-14); Neutrophils Absolute Auto 4600 /uL (1500-7000); Neutrophils Percent Auto 68.3 % (50-75); Platelet Count 198 X10^3/uL (150-400); Red Cell Distribution Width 12.7 % (11.6-14.8); White Blood Cell Count 6.7 X10^3/uL (4.5-11.0)
[2024-04-17 20:15] LABS: Alanine Aminotransferase 18 IU/L (<35); Albumin 4.5 g/dL (3.5-5.0); Albumin Globulin Ratio 1.4 (1.0-2.8); Alkaline Phosphatase 55 U/L (38-126); Aspartate Aminotransferase 86 IU/L (14-36); BUN Creatinine Ratio 14.5 (6-22); Bilirubin Total 1.3 mg/dL (0.2-1.3); Blood Urea Nitrogen 12 mg/dL (7-17); Calcium 9.5 mg/dL (8.4-10.2); Carbon Dioxide 30 mmol/L (22-32); Chloride 103 mmol/L (98-107); Estimated Glomerular Filt Rate > 60 mL/min (>60); Globulin 3.3 g/dL (1.7-4.1); Glucose 91 mg/dL (70-100); HEMOLYSIS 34 (0-50); Sodium 136 mmol/L (137-145); Total Protein 7.8 g/dL (6.3-8.2)
[2024-04-17 20:46] LABS: TSH w/ Reflex to FT4 1.61 uIU/mL (0.47-4.68)
[2024-04-17 21:05] LABS: Vitamin B12 405 pg/mL (239-931)
== END ==
PROVIDERS: PCP Family Medicine; Visit Provider Physician Assistant
DX: R53.83 Other fatigue (principal); M54.9 Dorsalgia, unspecified; Z79.899 Other long term (current) drug therapy; Z83.49 Family history of other endocrine, nutritional and metabolic diseases
CPT/HCPCS: 80053; 82607; 84443; 85025

== ENCOUNTER → 2024-08-14 10:00 | Outpatient (CLI) | payer OTHER, SELFPAY ==
[2022-09-02 13:16] VITALS: BMI 25.1
== END ==
LOC: LAB 10:01
PROVIDERS: PCP Family Medicine; Visit Provider Physician Assistant
DX: R39.89 Other symptoms and signs involving the genitourinary system (principal)
CPT/HCPCS: 87086

== ENCOUNTER → 2024-09-25 13:32 | Outpatient (CLI) | payer OTHER, SELFPAY ==
[2022-09-02 13:16] VITALS: BMI 25.1
[2024-09-25 20:00] LABS: Hemoglobin A1C% w Est Avg Glu 4.2 % (4.0-6.0)
[2024-09-25 20:02] LABS: Alanine Aminotransferase 14 IU/L (<35); Albumin 4.9 g/dL (3.5-5.0); Albumin Globulin Ratio 1.9 (1.0-2.8); Alkaline Phosphatase 51 U/L (38-126); Aspartate Aminotransferase 25 IU/L (14-36); BUN Creatinine Ratio 17.5 (6-22); Bilirubin Total 1.3 mg/dL (0.2-1.3); Blood Urea Nitrogen 14 mg/dL (7-17); C-Reactive Protein Quant < 0.5 mg/dL (<1.0); Calcium 9.9 mg/dL (8.4-10.2); Carbon Dioxide 26 mmol/L (22-32); Chloride 101 mmol/L (98-107); Cholesterol 145 mg/dL (140-199); Estimated Glomerular Filt Rate > 60 mL/min (>60); Gamma Glutamyl Transpeptidase 14 U/L (12-43); Globulin 2.6 g/dL (1.7-4.1); Glucose 85 mg/dL (70-99); HDL Cholesterol 72 mg/dL (40-60); HEMOLYSIS < 15 (0-50); LDL Cholesterol Calculated 55 mg/dL (<100); Potassium 4.1 mmol/L (3.4-5.1); Sodium 137 mmol/L (137-145); Total Protein 7.5 g/dL (6.3-8.2); Triglycerides 89 mg/dL (35-150)
[2024-09-25 20:06] LABS: Erythrocyte Sedimentation Rate 1 MM/HR (0-20)
[2024-09-25 20:09] LABS: Rheumatoid Factor < 8.6 IU/mL (<12.0)
[2024-09-25 20:56] LABS: HEMOLYSIS < 15 (0-50); Iron 154 ug/dL (37-170)
[2024-09-25 21:07] LABS: Percent Iron Saturation 53 % (15-50); Total Iron Binding Capacity 289 ug/dL (265-497); Transferrin 237 mg/dL (206-381)
[2024-09-25 22:26] LABS: Ferritin 52 ng/mL (6-137)
[2024-09-27 00:07] LABS: HBsAg Screen Negative (Negative); Hepatitis A Antibody IgM Negative (Negative); Hepatitis B Core Antibody IgM Negative (Negative); Hepatitis C Antibody Non Reactive (Non Reactive)
== END ==
PROVIDERS: PCP Family Medicine; Visit Provider Family Medicine
DX: M25.50 Pain in unspecified joint (principal); I10 Essential (primary) hypertension; M54.50 Low back pain, unspecified; R74.01 Elevation of levels of liver transaminase levels; Z83.79 Family history of other diseases of the digestive system; Z13.6 Encounter for screening for cardiovascular disorders; Z78.9 Other specified health status; N30.90 Cystitis, unspecified without hematuria
CPT/HCPCS: 80053; 80061; 80074; 82728; 82977; 83036; 83540; 83550; 85651; 86038; 86140; 86200; 86430; 87086